=== PATIENT | male | born 1950 | race Caucasian/White ===

== ENCOUNTER 2022-01-23 06:09 | Day surgery (SDC) | payer MEDICARE, BC, SELFPAY ==
[2022-01-23] VITALS (11 sets, daily range): BP systolic 123–150; BP diastolic 73–91; PULSE 45–64; RESP 11–18; TEMP 36–36.6; O2SAT 97–100; BMI 30.4
[2022-01-23] MEDS: SODIUM CHLORIDE 0.9 % (FLUSH) 10 ML SYRINGE IVF (06:35)
[2022-01-23] MEDS: LACTATED RINGERS 1000 ML 1,000 ML 100 ML IV (06:35)
--- NOTE | 2022-01-23 06:48 | SUR.PREOP ---
Visualized patient's home covid test, results negative.
[2022-01-23] MEDS: CEFAZOLIN 2 GM INJ IVP (08:00)
--- NOTE | 2022-01-23 08:20 | W.ANESCHARGE ---
Anesthesia Charges Start Date/Time Anesthesia Start Date: 01/23/22 Anesthesia Start Time: 07:49 Stop Date/Time Anesthesia Stop Date: 01/23/22 Anesthesia Stop Time: 09:45 Summary Emergency: No
[2022-01-23] MEDS: BUPIVACAINE 0.5% 30 ML INJECTION (09:33)
[2022-01-23] MEDS: fentaNYL 100 MCG/2 ML inj 50 MCG IVP (09:56)
--- NOTE | 2022-01-23 10:06 | P.GSOP_ITS ---
Operative Note Date of procedure: 01/23/22 Type of Procedure: Open right inguinal hernia repair with mesh Procedure Description: After discussing the risks and benefits of the procedure, the patient signed informed consent.? The operative site was marked and the patient was brought to the operating room. Spinal anesthetic was then administered by Anesthesia. Please see their procedure note for details. The patient was then placed on the operating table in supine position.? Care was taken to pad the patient's pressure points.?? The patient was then given sedation] by anesthesia.?? The operative site was then prepped and draped in the usual sterile fashion.? A time-out was then performed. Local anesthetic was injected into the skin and subcutaneous tissue overlying the inguinal canal. An ilioinguinal nerve block was performed. An oblique incision was made over the external ring. Dissection was carried down into the subcutaneous tissue using cautery until the external oblique fascia was encountered. This was cleared off. The external ring was identified and after injection of more local anesthetic, the external oblique was incised using a knife. This was extended using the Metzenbaum scissors with care to dissect the underlying cord structures away from the fascia before cutting. The cord was cleared from the inside of the inguinal canal and looped with a [place] drain. Initially I attempted to spare the ilioinguinal nerve, however it ran across the area of dissection, tethering the cord, and it was clear that it was going to interfere with the repair. For this reason I elected to divide it proximally. It was dissected out proximal to the internal ring and ligated with Vicryl suture. The distal end was then dissected away and removed. Additional local anesthetic was injected around the nerve. An indirect inguinal hernia was identified. A cord lipoma was encountered and dissected free, ligating the proximal aspect with suture to prevent bleeding. This was then discarded. The hernia sac was dissected off of the cord s tructures, dividing the cremasteric fibers. The sac was identified and it was somewhat thickened. For this reason I did open it distally to ensure there were no intra-abdominal structures contained within the sac. There were none. The sac was then ligated with Vicryl and the proximal end reduced into the abdomen. A piece of polypropylene mesh was obtained and cut to size. This was secured to the pubic tubercle using 2-0 Prolene on a double-armed suture. The Prolene was run along the inguinal ligament inferiorly and along the transversalis fascia superiorly, securing the tails around the cord and re-creating the internal ring. The ring was just large enough to permit my fingertip. The wound was examined for hemostasis which was found to be adequate. The external oblique fascia was then reapproximated with absorbable suture. The wound was then closed in layers including Keyana's fascia and the dermis with absorbable suture. The skin was then closed with a running subcuticular suture. Glue was then applied. The scrotum was examined to ensure that it contain both testicles. The patient was then woken and transported to the recovery area in stable condition. ? The patient tolerated the procedure well. Findings: Indirect right inguinal hernia Anesthesia: MAC and spinal Surgeon: Farrah Monterroso MD Estimated blood loss (mL): 5 Condition: stable Disposition: same day
[2022-01-23] MEDS: TRAMADOL HCL 50 MG TABLET PO (10:55)
--- NOTE | 2022-01-23 10:55 | W.ANESCHARGE ---
Anesthesia Charges Start Date/Time Anesthesia Start Date: 01/23/22 Anesthesia Start Time: 07:49 Stop Date/Time Anesthesia Stop Date: 01/23/22 Anesthesia Stop Time: 09:45 Summary Emergency: No
== END 2022-01-23 11:38 | disposition home or self-care (01) ==
PROVIDERS: PCP Family Medicine; Visit Provider Surgery
PROC: (CPT 49505; principal; 2022-01-23 07:30)
DX: K40.90 Unilateral inguinal hernia, without obstruction or gangrene, not specified as recurrent (principal)
CPT/HCPCS: 49505; 00830; A9270; C1781; J0690; J2250; J2400; J2704; J3010; J3490; J7120

== ENCOUNTER 2022-04-21 09:22 | Outpatient (CLI) | payer MEDICARE, BC, SELFPAY ==
--- NOTE | 2022-04-21 10:33 | W.ANESCHARGE ---
Anesthesia Charges Start Date/Time Anesthesia Start Date: 04/21/22 Anesthesia Start Time: 09:20 Stop Date/Time Anesthesia Stop Date: 04/21/22 Anesthesia Stop Time: 10:10
--- NOTE | 2022-04-21 11:21 | W.ANESCHARGE ---
Anesthesia Charges Start Date/Time Anesthesia Start Date: 04/21/22 Anesthesia Start Time: 09:20 Stop Date/Time Anesthesia Stop Date: 04/21/22 Anesthesia Stop Time: 10:10
--- NOTE | 2022-04-21 12:46 | W.ANESCHARGE ---
Anesthesia Charges Start Date/Time Anesthesia Start Date: 04/21/22 Anesthesia Start Time: 09:20 Stop Date/Time Anesthesia Stop Date: 04/21/22 Anesthesia Stop Time: 10:10
== END 2022-04-21 09:23 | disposition home or self-care (01) ==
LOC: OP CLINIC 09:24
PROVIDERS: PCP Family Medicine; Visit Provider Internal Medicine Gastroenterology
DX: R19.5 Other fecal abnormalities (principal); K63.5 Polyp of colon; Q43.8 Other specified congenital malformations of intestine
CPT/HCPCS: 00811; 45381; 45385; 88305; J2704

== ENCOUNTER 2023-02-02 12:09 | Outpatient (CLI) | payer MEDICARE, BC, SELFPAY ==
--- NOTE | 2023-02-02 13:24 | P.ANES_ITS ---
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
--- NOTE | 2023-02-02 13:42 | W.ANESCHARGE ---
Anesthesia Charges Start Date/Time Anesthesia Start Date: 02/02/23 Anesthesia Start Time: 12:53 Stop Date/Time Anesthesia Stop Date: 02/02/23 Anesthesia Stop Time: 13:20 Summary Extremes of Age - Over 70 or under 1: MDA
== END 2023-02-02 12:10 | disposition home or self-care (01) ==
LOC: OP CLINIC 12:10
PROVIDERS: PCP Family Medicine; Visit Provider Internal Medicine Gastroenterology
DX: Z86.010 Personal history of colon polyps (principal); K63.5 Polyp of colon; Q43.8 Other specified congenital malformations of intestine; Z98.890 Other specified postprocedural states
CPT/HCPCS: 00811; 45380; 88305; 99100; J2704